=== PATIENT | male | born 1965 | race Caucasian/White ===

== ENCOUNTER 2016-05-18 03:45 | Emergency (ER) | payer MEDICAID ==
[~2016-05-18] VITALS: Ht 162.6 cm; Wt 72.1 kg
--- NOTE | 2016-05-18 03:45 | NUR ---
Patient was taken to bed 04 via wheelchair per RN.
[2016-05-18 03:59] VITALS: BP 114/90
[2016-05-18] MEDS ORDERED: ONDANSETRON 4 MG/2 ML VIAL IVP ONE (04:00)
[2016-05-18] MEDS ORDERED: MULTIVITAMIN-12 10 ML, THIAMINE 100 MG, MAGNESIUM SULFATE 50% 2,000 MG, FOLIC ACID 5 MG... IV ONE (04:00)
--- NOTE | 2016-05-18 04:00 | NUR ---
LAB AT BEDSIDE.
--- NOTE | 2016-05-18 04:00 | NUR ---
BIB FAMILY FOR ETOH. PT UNABLE TO ANSWER QUESTIONS AT THIS TIME. PT VOMITTING AND UNABLE TO STAND ON HIS OWN. SKIN IS PINK/WARM/DRY; LUNGS CLEAR BL; HR EVEN AND REGULAR; NO FEVER, CP, SOB, OR COUGH AT THIS TIME; VSS; PATIENT POSITIONED FOR COMFORT; HOB ELEVATED; BEDRAILS UP X2; BED DOWN. ER MD MADE AWARE OF PT STATUS.
[2016-05-18] MEDS ORDERED: FOLIC ACID 5 MG/ML SYR ONE (04:11)
[2016-05-18] MEDS ORDERED: THIAMINE 200 MG/2 ML VIAL ONE (04:11)
[2016-05-18] MEDS ORDERED: MAGNESIUM SULFATE 50% 1000 MG/2 ML VIAL IV ONE (04:11)
[2016-05-18] MEDS ORDERED: MULTIVITAMIN-12 10 ML VIAL IV ONE (04:11)
--- NOTE | 2016-05-18 05:00 | NUR ---
Patient appears to be resting comfortably in bed. Vital Signs within normal limits. Respirations even and unlabored.
[2016-05-18 06:46] VITALS: BP 115/71
--- NOTE | 2016-05-18 06:49 | NUR ---
Patient discharged with v/s stable. Written and verbal after care instructions given and explained. Patient verbalized understanding. Ambulatory with steady gait. All questions addressed prior to discharge. Advised to follow up with PMD.
== END 2016-05-18 06:49 | disposition home or self-care (01) ==
LOC: MED 03:45
DX: G92 Toxic encephalopathy (principal); F10.129 Alcohol abuse with intoxication, unspecified; Y90.8 Blood alcohol level of 240 mg/100 ml or more
CPT/HCPCS: 36415; 80053; 80305; 82550; 82948; 85025; 93005; 96365; 96366; 96375; 99285; A9153; C1758; G0480; G0482; J2405; J3411; J3475; J3490; J7030